=== PATIENT | male | born 1985 | race Two or more races ===

== ENCOUNTER 2022-01-27 23:24 | Emergency (ER) | payer BC ==
[~2022-01-27] VITALS: Ht 177.8 cm; Wt 99.8 kg
--- NOTE | 2022-01-27 23:35 | NUR ---
Dr. Mackay at bedside. MSE in progress.
--- NOTE | 2022-01-28 | NUR ---
CT with contrast form signed and placed patient's in folder.
[2022-01-28 00:10] LABS: HEMATOCRIT 41.2 % (36.7-47.1); MEAN CORPUSCULAR HEMOGLOBIN 30.5 uug (23.8-33.4); PLATELET COUNT (AUTO) 263 K/uL (152-348)
[2022-01-28 00:15] LABS: CREATININE 1.1 mg/dL (0.6-1.3); POTASSIUM 3.8 mmol/L (3.5-5.1)
[2022-01-28] MEDS ORDERED: IV NORMAL SALINE 250 ML IV ONE (00:42)
[2022-01-28] MEDS ORDERED: SWABABLE VALVE TRANSFER SET EA MC ONE (00:42)
[2022-01-28] MEDS ORDERED: IOHEXOL 300MG/ML 100 ML INFUS..BTL ONE (00:42)
--- NOTE | 2022-01-28 00:50 | NUR ---
Patient went down for CT scan.
--- NOTE | 2022-01-28 01:07 | NUR ---
Patient back from CT scan.
[2022-01-28] MEDS ORDERED: KETOROLAC TROMETHAMINE 15 MG INJ ONE (02:28)
[2022-01-28] MEDS ORDERED: KETOROLAC TROMETHAMINE 15 MG INJ IVP ONE (02:30)
[2022-01-28] MEDS ORDERED: AMOX-430 PO (03:42)
--- NOTE | 2022-01-28 03:54 | NUR ---
Patient discharged to home in stable condition. A/O x4. NAD noted. Ambulatory with a steady gait. All belongings with patient. Written and verbal after care instructions given. Patient verbalizes understanding of instructions. Stressed follow up or return to ER for worsening s/s.
[2022-01-28 03:55] VITALS: BP 139/85
[2022-01-28 08:21] LABS: BAND % (MANUAL) 4 % (0-10); LYMPHOCYTES % (MANUAL) 27 % (20-40); MONOCYTES % (MANUAL) 13 % (2-10); NEUTROPHILS % (MANUAL) 56 % (42-75)
== END 2022-01-28 03:55 | disposition home or self-care (01) ==
LOC: ER 23:26
DX: K11.20 Sialoadenitis, unspecified (principal)
CPT/HCPCS: 70487; 80048; 85025; 36415; 99285; 96374; 85007; J1885; Q9967; 70030-TC; A4663